=== PATIENT | female | born 1975 | race Caucasian/White ===

== ENCOUNTER 2017-01-14 10:34 | Emergency (ER) | payer BC ==
[~2017-01-14] VITALS: Ht 167.6 cm; Wt 83.9 kg
[~2017-01-14 10:34] MED LIST: MUCUS ER600 MG PO; PREDNISONE20 MG PO; PROAIR HFA8.5 GM IH; ROBITUSSIN NIG118 ML PO; TESSALON PERLE100 MG PO; VENTOLIN HFA18 GM IH
[2017-01-14 12:18] LABS: EOSINOPHIL (%) 0.1 % (0-5); HEMATOCRIT 41.6 % (36.0-46.0); IMMATURE GRANULOCYTE (%) 0.4 % (0.0-0.7); INSTRUMENT ABS NEUTROPHIL CT 5.7 K/uL; LYMPHOCYTE COUNT 1.1 K/uL (1.0-2.8); MCH 30.6 PG (29.0-34.0); MCHC 33.2 G/DL (30.0-36.0); MCV 92.2 FL (83-99); MEAN PLAT.VOLUME 9.8 uM^3 (9.5-12.4); MONOCYTE (%) 4.2 % (3-12); MONOCYTE COUNT 0.3 K/uL (0-0.8); NEUTROPHIL (%) 79.5 % (45-76); NEUTROPHIL COUNT 5.7 K/uL (1.8-6.4); PLATELET COUNT 299 K/uL (156-360); RBC DIS.WIDTH-CV 13.6 % (11.8-14.6); RBC DIS.WIDTH-SD 46.5 % (39-53); RED BLOOD COUNT 4.51 M/uL (3.80-5.20); WHITE BLOOD COUNT 7.2 K/uL (4.1-10.2)
[2017-01-14 12:29] LABS: CHLORIDE 108 mEq/L (99-109)
[2017-01-14 12:30] LABS: POTASSIUM 3.8 mEq/L (3.7-5.4); SODIUM 141 mEq/L (136-147)
[2017-01-14 12:32] LABS: GLUCOSE 101 mg/dL (70-99)
[2017-01-14 12:33] LABS: ANION GAP 9 MEQ/L (2-14)
[2017-01-14 12:34] LABS: TOTAL BILIRUBIN 0.5 mg/dL (0.0-1.0)
[2017-01-14 12:35] LABS: ALKALINE PHOSPHATASE 47 IU/L (3-129); GFR ESTIMATE (CALCULATED) > 59 mL/min/
[2017-01-14 12:37] LABS: UREA NITROGEN (BUN) 5 mg/dL (9-23)
[2017-01-14 12:39] LABS: LIPASE 15 U/L (1.0-51.0)
[2017-01-14 14:26] LABS: ADD MIUA? NO; BILIRUBIN NEGATIVE; BLOOD NEGATIVE; COLOR STRAW ((YELLOW)); GLUCOSE (STRIP) NEGATIVE; KETONES 5; LEUKOCYTES NEGATIVE; NITRITE NEGATIVE; PROTEIN (STRIP) NEGATIVE; UCUL ADDED? NO; UROBILINOGEN 0.2 MG/DL (0.2-1.0)
[2017-01-14 14:40] LABS: SPECIFIC GRAVITY 1.069 (1.000-1.030)
[2017-01-14] MEDS ORDERED: BENTYL20 MG PO (14:57)
[2017-01-14 15:37] VITALS: BP 119/83
== END 2017-01-14 15:39 | disposition home or self-care (01) ==
LOC: EME 10:34
PROVIDERS: Emergency Medicine
DX: R10.84 Generalized abdominal pain (principal); M54.9 Dorsalgia, unspecified; R00.0 Tachycardia, unspecified; J45.909 Unspecified asthma, uncomplicated
CPT/HCPCS: 74177; 80053; 81003; 83690; 85025; 93005; 99281; 99285; J1200; J7030